=== PATIENT | female | born 1940 | race Asian ===

== ENCOUNTER 2021-02-05 16:32 | Emergency (ER) | payer MEDICARE, OTHER ==
[~2021-02-05] VITALS: Ht 162.6 cm; Wt 59.1 kg
[2021-02-05] MEDS ORDERED: LIDOCAINE 5% TRANSDERMAL PATCH TD ONE (17:30)
[2021-02-05] MEDS ORDERED: ACETAMINOPHEN 500 MG TABLET PO ONE (17:30)
[2021-02-05 19:08] VITALS: BP 131/66
== END 2021-02-05 19:22 | disposition home or self-care (01) ==
LOC: EMS 16:35
DX: S13.4XXA Sprain of ligaments of cervical spine, initial encounter (principal); W18.39XA Other fall on same level, initial encounter; Y93.89 Activity, other specified; Y92.89 Other specified places as the place of occurrence of the external cause; Y99.8 Other external cause status; E11.9 Type 2 diabetes mellitus without complications; I10 Essential (primary) hypertension
CPT/HCPCS: 72125; 99284; Z7502; Z7610